=== PATIENT | female | born 1980 | race Caucasian/White ===

== ENCOUNTER 2016-08-23 23:08 | Emergency (ER) | payer OTHER, SELFPAY ==
[~2016-08-23] VITALS: Ht 152.4 cm; Wt 64.0 kg
[2016-08-23 23:09] VITALS: BP 140/109
== END 2016-08-24 00:15 | disposition left against medical advice (07) ==
LOC: ED 08-24 00:10
DX: Z53.21 Procedure and treatment not carried out due to patient leaving prior to being seen by health care provider (principal)